=== PATIENT | female | born 1940 | race Caucasian/White ===

== ENCOUNTER → 2016-10-01 | Outpatient (CLI) | payer MEDICARE, BC ==
[~2016-10-01] MED LIST: CALC-686 PO; CHOL400T10 PO; FISH1CAP29 PO; GLUCOSAMINE PO; HYDR12.512 PO; MULT-806 PO
== END ==
LOC: IMA 10:18
PROVIDERS: ATTEND Nurse Practitioner
DX: M81.8 Other osteoporosis without current pathological fracture (principal); C50.912 Malignant neoplasm of unspecified site of left female breast; Z90.722 Acquired absence of ovaries, bilateral